=== PATIENT | male | born 1975 | race African-American/Black ===

== ENCOUNTER 2020-03-31 15:46 | Emergency (ER) | payer OTHER ==
[~2020-03-31] VITALS: Ht 172.7 cm; Wt 84.8 kg
[2020-03-31 16:05] VITALS: BP 125/81
[2020-03-31] MEDS ORDERED: Ketorolac 30mg Inj IM ONE (16:30)
--- NOTE | 2020-03-31 16:45 | Emergency Room Report ---
History of Present Illness General Chief Complaint: Pain Source: Patient Present Illness HPI 44-year-old male with no signal past medical history other than being legally blind here complaining of sudden onset of left big toe pain without any fall or injury. Rates the pain a 10 without radiation. Affected area is warm to touch. No pus drainage noted. Reports that he consumes a lot of food with purine. Drinks alcohol and raised red meat. Denies any calf tenderness, pressure, chest pain shortness of breath. Has not taken medication for symptom relief. Denies tingling and numbness. Allergies: Coded Allergies: No Known Allergies (Unverified , 03/31/20) COVID-19 Screening Contact w/high risk pt: No Recent Travel to affected area: No Experienced COVID-19 symptoms?: No COVID-19 Testing performed PROCESSOR HELPER: No Patient History Past Medical History: see triage record Past Surgical History: none Pertinent Family History: none Immunizations: UTD Reviewed Nursing Documentation: PMH: Agreed; PSxH: Agreed Nursing Documentation-PMH Past Medical History: No History, Except For Review of Systems All Other Systems: negative except mentioned in HPI Physical Exam Vital Signs Date Time Temp Pulse Resp B/P (MAP) Pulse Ox O2 Delivery O2 Flow Rate FiO2 03/31/20 15:56 98.8 97 20 125/81 (96) 97 Room Air Sp02 EP Interpretation: reviewed, normal General Appearance: no apparent distress, alert, GCS 15, non-toxic Head: normocephalic, atraumatic Eyes: bilateral eye normal inspection, bilateral eye PERRL ENT: hearing grossly normal, normal pharynx, no angioedema, normal voice Neck: full range of motion, supple/symm/no masses Respiratory: chest non-tender, lungs clear, normal breath sounds, speaking full sentences Cardiovascular #1: regular rate, rhythm, no edema Cardiovascular #2: 2+ dorsalis pedis (R), 2+ dorsalis pedis (L) Gastrointestinal: normal bowel sounds, non tender, soft, non-distended, no guarding, no rebound Genitourinary: no CVA tenderness Musculoskeletal: back normal, no calf tenderness, no lower extremity edema, non -tender, swelling - Left big toe Neurologic: alert, motor strength/tone normal, oriented x3, sensory intact, responsive, speech normal Psychiatric: judgement/insight normal, memory normal, mood/affect normal, no suicidal/homicidal ideation Skin: no rash Lymphatic: no adenopathy Medical Decision Making PA Attestation All my diagnosis and treatment plans were reviewed ad discussed with my supervising physician Dr. Jo Diagnostic Impression: Primary Impression: Gout ER Course 44-year-old male with no signal past medical history other than being legally blind here complaining of sudden onset of left big toe pain without any fall or injury. Rates the pain a 10 without radiation. Affected area is warm to touch. No pus drainage noted. Reports that he consumes a lot of food with purine. Drinks alcohol and raised red meat. Denies any calf tenderness, pressure, chest pain shortness of breath. Has not taken medication for symptom relief. Denies tingling and numbness. Ddx considered but are not limited to: foot fracture, foot sprain, foot contusion, foot strain, gout Vital signs: are WNL, pt. is afebrile H&PE are most consistent with: gout ORDERS: foot Xray , indomethacin ED INTERVENTIONS:toradol IM DISCHARGE: At this time pt. is stable for d/c to home. Will provide printed patient care instructions, and any necessary prescriptions. Care plan and follow up instructions have been discussed with the patient prior to discharge. Avoid food with urine, take medication as directed, follow-up primary doctor for uric acid testing. Other X-Ray Diagnostic Results Other X-Ray Diagnostic Results : X-Ray ordered: Left foot # of Views/Limited Vs Complete: 3 View Indication: Swelling EP Interpretation: Yes PA Xray: Interpretation reviewed, by supervising MD, and agrees with findings. Interpretation: no dislocation, no soft tissue swelling, no fractures Impression: No acute disease Electronically Signed by: Mary Harris PA-C Last Vital Signs Date Time Temp Pulse Resp B/P (MAP) Pulse Ox O2 Delivery O2 Flow Rate FiO2 03/31/20 16:05 98.8 88 20 125/81 97 Room Air Disposition: HOME, SELF-CARE Condition: Stable Scripts Indomethacin (INDOMETHACIN) 50 Mg Capsule 50 MG PO TID for 7 Days, #24 CAP Prov: Mary Álvarez 03/31/20 Referrals: NON PHYSICIAN (PCP) Patient Instructions: Gout, Iusc-kg-Dfng Additional Instructions: Take medication as directed, avoid eating foods with high purine, if worsening symptom return to the emergency room. Have primary doctor test your uric acid levels Mary Álvarez March 31, 2020 16:45
[2020-03-31] MEDS ORDERED: INDOMETHACIN50 MG PO (16:46)
[2020-03-31 17:05] VITALS: BP 128/78
--- NOTE | 2020-03-31 17:05 | Diagnostic Imaging Report ---
EXAM: X-RAY XRAY Foot Complete L CLINICAL HISTORY: Foot pain. COMPARISON: None FINDINGS: Total of 4 views of the left foot were obtained. Alignment is anatomic. There is no fracture, bony lesions or erosions. Joint spaces are unremarkable. Surrounding soft tissue is normal. IMPRESSION: NO ACUTE BONY ABNORMALITY.
== END 2020-03-31 17:01 | disposition home or self-care (01) ==
LOC: EMR 16:00
DX: M10.9 Gout, unspecified (principal)
CPT/HCPCS: 73630; 96372; J1885; Z7502; 99283